=== PATIENT | female | born 1965 | race Caucasian/White ===

== ENCOUNTER 2019-04-25 21:48 | Emergency (ER) | payer SELFPAY ==
[~2019-04-25] VITALS: Ht 157.5 cm; Wt 81.6 kg
[2019-04-25 21:52] VITALS: BP 147/81
--- NOTE | 2019-04-25 21:58 | NUR ---
PT AMBULATED BACK TO LOBBY, WITH SON, SHEREE
--- NOTE | 2019-04-25 22:43 | NUR ---
PT TAKEN TO BED 3
--- NOTE | 2019-04-25 22:50 | NUR ---
PT IS A 53 Y/O FEMALE WHO PRESENTS TO THE ED C/O ABD PAIN. PT STATES THAT SYMPTOMS STARTED TODAY AROUND 1700 WHEN SHE HAD A MILK SHAKE AND COFFE. PT REPORTS 9/10 SHARP PAIN THAT RADIATES TO THE BACK. PT DENIES CP, SOB, REPORTS NAUSEA DENIES VOMITING/DIARRHEA. PT AWAKE AND ALERT, RR EVEN/UNLABORED. PT REPOSITIONED FOR COMFORT, BED IN LOWEST POSITION. ER MD DR. DAY NOTIFIED. WILL CONTINUE TO MONITOR. [facility] MEDICAL HX; LACTOSE INTOLERANT
--- NOTE | 2019-04-25 22:58 | NUR ---
PATIENT REPORT GIVEN TO KERVIN GOMEZ. TRANSFER OF CARE AT THIS TIME.
[2019-04-26] MEDS ORDERED: fentaNYL 0.05 MG/ML VIAL IVP ONE (00:25)
[2019-04-26] MEDS ORDERED: NACL 0.9% 1,000 ML IV ONE (00:25)
[2019-04-26 00:45] LABS: BASOPHILS % (AUTO) 0.6 % (0.0-2.0); EOSINOPHILS # (AUTO) 0.1 K/uL (0-0.4); EOSINOPHILS % (AUTO) 0.6 % (0.0-4.0); HEMATOCRIT 42.1 % (36-48); HEMOGLOBIN 14.5 g/dL (12.0-16.0); LYMPHOCYTES % (AUTO) 11.5 % (20.5-51.1); MEAN CORPUSCULAR HEMOGLOBIN 30 pg (27-31); MEAN CORPUSCULAR HGB CONC 34 g/dL (33-37); MEAN CORPUSCULAR VOLUME 87.6 fL (80-94); MONOCYTES # (AUTO) 0.4 K/uL (0.8-1.0); NEUTROPHILS # (AUTO) 7.1 K/uL (1.8-7.7); NEUTROPHILS % (AUTO) 82.3 % (42.2-75.2); PLATELET COUNT (AUTO) 207 K/uL (140-450); RED CELL DISTRIBUTION WIDTH 13.7 % (11.6-13.7); WHITE BLOOD COUNT (AUTO) 8.7 K/uL (4.8-10.8)
[2019-04-26 00:55] LABS: ANION GAP 14.4 (8-16); CARBON DIOXIDE 26.6 mmol/L (21-32); CREATININE 0.7 mg/dL (0.6-1.3)
--- NOTE | 2019-04-26 00:55 | NUR ---
PT PLACED ATTATCHED TO BEDSIDE [employer]ULT[employer], MEDICATION ADMINISTERED. POSITIONED FOR COMFORT, PT ACTING APPROPRIATLY. BREATHING EQUAL AND UNLABORED.
[2019-04-26 01:00] LABS: ALBUMIN 4.3 g/dL (3.4-5.0); TOTAL BILIRUBIN 0.5 mg/dL (0.0-1.0)
[2019-04-26] MEDS ORDERED: ONDANSETRON 4 MG/2 ML VIAL IVP ONE (01:10)
--- NOTE | 2019-04-26 01:25 | NUR ---
ZOFRAN 4 MG IVP ADMINISTERED AT THIS TIME, V/O FROM DR. DAY.
[2019-04-26] MEDS ORDERED: ONDANSETRON 4 MG/2 ML VIAL ONE (01:30)
[2019-04-26] MEDS ORDERED: ONDANSETRON 4 MG/2 ML VIAL IVP STA (01:32)
--- NOTE | 2019-04-26 02:25 | NUR ---
Patient discharged with v/s stable. Patient acting appropriatly, states she feels decrease in nausea and pain; pain 2/10, states coping. Written and verbal after care instructions given and explained. Patient alert, oriented and verbalized understanding of instructions. Ambulatory with steady gait. All questions addressed prior to discharge. ID band removed. Patient advised to follow up with PMD. Rx of Tramadol hydrochloride, and Bentyl given. Patient educated on indication of medication including possible reaction and side effects. Opportunity to ask questions provided and answered.
[2019-04-26 02:37] VITALS: BP 140/75
== END 2019-04-26 02:25 | disposition home or self-care (01) ==
LOC: MED 21:48
DX: R10.9 Unspecified abdominal pain (principal); R11.0 Nausea; M54.6 Pain in thoracic spine
CPT/HCPCS: 36415; 80053; 81002; 81025; 83690; 85025; 96374; 96375; 99283; J2405; J3010; J7030

== ENCOUNTER 2021-08-13 19:11 | Emergency (ER) | payer MEDICAID ==
[~2021-08-13] VITALS: Ht 156.2 cm; Wt 80.7 kg
[2021-08-13 19:20] VITALS: BP 170/93
--- NOTE | 2021-08-13 19:25 | NUR ---
PATIENT AMBULATED TO THE BATHROOM
--- NOTE | 2021-08-13 19:31 | NUR ---
PATIENT TO LOBBY
--- NOTE | 2021-08-13 22:10 | NUR ---
CALLED IN LOBBY BY [facility]. NO ANSWER.
--- NOTE | 2021-08-13 22:18 | NUR ---
CALLED IN LOBBY AND OUTSIDE. NO ANSWER.
--- NOTE | 2021-08-13 23:05 | NUR ---
[facility] CALLED PT. NO ANSWER.
--- NOTE | 2021-08-13 23:05 | NUR ---
PATIENT LEFT WITHOUT BEING SEEN BY DR. GONZALEZ. NO FURTHER CARE PROVIDED FOR PATIENT.
== END 2021-08-13 22:10 | disposition left against medical advice (07) ==
LOC: MED 19:11
DX: R10.13 Epigastric pain (principal); Z53.21 Procedure and treatment not carried out due to patient leaving prior to being seen by health care provider

== ENCOUNTER 2023-10-25 17:18 | Emergency (ER) | payer MEDICAID ==
[~2023-10-25] VITALS: Ht 162.6 cm; Wt 75.3 kg
[2023-10-25 17:41] VITALS: BP 152/88; PULSE 92; RESP 16; TEMP 98; O2SAT 98
[2023-10-25] MEDS ORDERED: LIDOCAINE MPF 1% 10 MG/ML VIAL INJ ONE (19:45)
[2023-10-25] MEDS ORDERED: ACET-10509 PO (20:29)
== END 2023-10-25 20:43 | disposition home or self-care (01) ==
LOC: MED 17:18
DX: S01.01XA Laceration without foreign body of scalp, initial encounter (principal); X58.XXXA Exposure to other specified factors, initial encounter; Y93.89 Activity, other specified; Y92.89 Other specified places as the place of occurrence of the external cause; Y99.8 Other external cause status
CPT/HCPCS: 12002; 90471; 90715; 99283; J2001; Q0163

== ENCOUNTER 2023-10-28 16:33 | Emergency (ER) | payer MEDICAID ==
[~2023-10-28] VITALS: Ht 157.5 cm; Wt 72.6 kg
[~2023-10-28 16:33] MED LIST: ACET-10509 PO
[2023-10-28 16:54] VITALS: BP 137/76; PULSE 59; RESP 18; TEMP 97; O2SAT 98
== END 2023-10-28 19:29 | disposition home or self-care (01) ==
LOC: MED 16:33
DX: S01.81XD Laceration without foreign body of other part of head, subsequent encounter (principal); Z48.00 Encounter for change or removal of nonsurgical wound dressing; Z79.899 Other long term (current) drug therapy; W01.198D Fall on same level from slipping, tripping and stumbling with subsequent striking against other object, subsequent encounter
CPT/HCPCS: 99281

== ENCOUNTER 2023-11-03 14:54 | Emergency (ER) | payer SELFPAY ==
[~2023-11-03] VITALS: Ht 152.4 cm; Wt 80.3 kg
[2023-11-03 15:18] VITALS: BP 123/79; PULSE 77; RESP 18; TEMP 98.4; O2SAT 96
[2023-11-03 15:25] VITALS: BP 122/80; PULSE 80; RESP 18; TEMP 98; O2SAT 98
== END 2023-11-03 15:25 | disposition home or self-care (01) ==
LOC: MED 14:54
DX: S01.81XD Laceration without foreign body of other part of head, subsequent encounter (principal); Z48.02 Encounter for removal of sutures; Z79.899 Other long term (current) drug therapy; W22.8XXD Striking against or struck by other objects, subsequent encounter
CPT/HCPCS: 99281